=== PATIENT | female | born 1985 | race Two or more races ===

== ENCOUNTER 2019-03-16 11:01 | Outpatient (CLI) | payer OTHER | END 2019-03-16 11:09 | disposition home or self-care (01) | LOC: RX STUDY 11:01 | DX: C54.1 Malignant neoplasm of endometrium (principal) ==

== ENCOUNTER 2021-03-05 09:27 | Outpatient (CLI) | payer OTHER | END 2021-03-05 11:57 | disposition home or self-care (01) | LOC: RX STUDY 09:27 | PROVIDERS: ATTEND Obstetrics & Gynecology Reproductive Endocrinology | DX: N70.91 Salpingitis, unspecified (principal) ==